=== PATIENT | male | born 1935 | race Hispanic/Latino ===

== ENCOUNTER 2019-03-31 05:30 | Day surgery (SDC) | payer MEDICARE ==
[2019-03-29 14:30] LABS: BASOPHILS % (AUTO) 0.6 % (0.0-5.0); EOSINOPHILS % (AUTO) 4.5 % (0.0-8.0); HEMATOCRIT 38.2 % (42-54); MEAN CORPUSCULAR HEMOGLOBIN 32.4 pg (27.0-33.0); MEAN CORPUSCULAR HGB CONC 33.2 g/dL (32.0-36.0); MEAN CORPUSCULAR VOLUME 97.4 fL (79-99); MONOCYTES % (AUTO) 11.5 % (3.0-13.0); PLATELET COUNT (AUTO) 146 K/uL (130-400); RED BLOOD CELL COUNT(AUTO) 3.92 MIL/uL (4.50-6.20); RED CELL DISTRIBUTION WIDTH 13.2 % (11.0-15.5); WHITE BLOOD COUNT (AUTO) 5.4 K/uL (4.8-10.8)
[2019-03-29 14:44] LABS: CREATININE 1.1 mg/dL (0.5-1.5); POTASSIUM 4.2 mmol/L (3.5-5.1)
[2019-03-29 14:51] LABS: INR 1.04 (0.85-1.15); PARTIAL THROMBOPLASTIN TIME 33.1 SEC (26.3-35.5); PROTHROMBIN TIME 10.9 SEC (9.6-11.6)
[2019-03-29 15:02] VITALS: BP 121/65
--- NOTE | 2019-03-29 16:50 | NUR ---
SPOKE WITH [employer] REP AND HE IS AWARE OF PROCEDURE,
--- NOTE | 2019-03-30 09:39 | NUR ---
AWARE OF ABNORMAL LABS NO NEW ORDERS
[~2019-03-31] VITALS: Ht 177.8 cm; Wt 91.6 kg
[2019-03-31] VITALS (8 sets, daily range): BP systolic 98–151; BP diastolic 51–89
[~2019-03-31 05:30] MED LIST: ALLO300T2 PO; APIX5TAB PO; ATOR40TA71 PO; CAND8TAB10 PO; METO50TA18 PO; MOME17N NS; PANT40TA25 PO; SODIUM CHLORIDE 0.9% 500ML 500 ML IV SCH; VIT D 2 PO
[2019-03-31] MEDS ORDERED: CEFAZOLIN SODIUM 1 GM VIAL IVP SCH (06:00)
[2019-03-31] MEDS ORDERED: SODIUM CHLORIDE 0.9% 1000ML 1,000 ML IV ONE (06:01)
[2019-03-31] MEDS ORDERED: BUPIVACAINE/PF 0.25% 30ML VIAL IJ ONE (09:13)
[2019-03-31] MEDS ORDERED: MIDAZOLAM HCL 1 MG/ML 2ML VIAL ONE ×2 (09:13→11:07)
[2019-03-31] MEDS ORDERED: MEPERIDINE-PF 25 MG/ML SYG ONE ×2 (09:13→11:07)
[2019-03-31] MEDS ORDERED: LIDOCAINE HCL 1% MDV 50ML VIAL ONE (09:13)
--- NOTE | 2019-03-31 09:50 | NUR ---
PT TSF BY BED TO [employer].
[2019-03-31] MEDS ORDERED: CEFAZOLIN SODIUM 1 GM VIAL ONE (09:57)
[2019-03-31] MEDS ORDERED: TRAM50TA4 PO (11:41)
[2019-03-31] MEDS ORDERED: ACETAMINOPHEN-CODEINE 300/30MG TAB PO PRN (11:45)
--- NOTE | 2019-03-31 15:10 | NUR ---
PT LEFT VIA WHEELCHAIR VIA PVT CAR WITH RX SCRIPT GIVEN TO , D/C INSTRUCTIONS ALONG WITH F/U APPT. DRESSING DRY AND INTACT, V/S STABLE NO COMPLICATION. PT. GIVEN 4X4 X 5 DAY AND TEGADERM.
== END 2019-03-31 15:10 | disposition home or self-care (01) ==
LOC: DAH 05:30
PROVIDERS: ATTEND Internal Medicine Cardiovascular Disease
DX: Z45.010 Encounter for checking and testing of cardiac pacemaker pulse generator [battery] (principal); I44.2 Atrioventricular block, complete; I10 Essential (primary) hypertension; I48.92 Unspecified atrial flutter; Z79.01 Long term (current) use of anticoagulants; Z79.899 Other long term (current) drug therapy; Z88.8 Allergy status to other drugs, medicaments and biological substances; Z72.89 Other problems related to lifestyle
CPT/HCPCS: 33228; 36415; 80048; 85025; 85610; 85730; 93306; 93356; A4215; A4216; A4221; A4222; A4223 ×3; A4606; A4615; A4663; A5113; A5120; C1785; J0690; J2175 ×2; J2250 ×2; J3490 ×2; J7030; 99156; 99157